=== PATIENT | female | born 1960 | race Asian ===

== ENCOUNTER → 2024-06-11 | Outpatient (CLI) | payer MEDICARE, SELFPAY ==
[2024-06-11 09:11] LABS: Collection Type, Urine Clean Catch
[2024-06-11 09:30] LABS: Bilirubin,Urine Negative (Negative); Blood,Urine Negative (Negative); Clarity,Urine Clear (Clear/Hazy); Color,Urine Yellow (Lt Yel-Yel); Glucose, Urine Negative (Negative); Ketones,Urine Negative (Negative); Leukocyte Esterase,Urine Negative (Negative); Nitrite,Urine Negative (Negative); Protein,Urine Trace (Neg - Trace); RBC,Urine 2 /hpf (0-3); Specific Gravity,Urine 1.027 (1.001-1.035); Squamous Epithelial Cell,Urine < 1 /hpf (0-5); Urobilinogen,Urine Negative mg/dL (0.0-1.0); WBC,Urine 1 /hpf (0-5)
[2024-06-11 09:38] LABS: Glucose Estimated Average 114 mg/dL (80-131); Hemoglobin A1C 5.6 % Hgb (4.8-6.0)
[2024-06-11 10:01] LABS: Alanine Aminotransferase 16 U/L (10-49); Albumin, Serum 4.3 gm/dL (3.4-4.8); Albumin/Globulin Ratio 1.9 (1.2-2.2); Anion Gap 7 (7-16); Aspartate Amino Transferase 22 U/L (0-34); BUN/Creatinine Ratio 25 Ratio (12-20); Bilirubin,Total 0.7 mg/dL (0.3-1.2); Blood Urea Nitrogen 20 mg/dL (9-23); Calcium 9.8 mg/dL (8.3-10.6); Calcium (Corrected) 9.8 mg/dL (8.5-10.1); Carbon Dioxide 29.3 mMol/L (20.0-31.0); Cardiac Risk Estimate 2.4 RATIO (3.7-5.6); Chloride 101 mMol/L (98-107); Cholesterol 172 mg/dL (132-200); Creatinine (Component) 0.8 mg/dL (0.6-1.3); Globulin 2.3 gm/dL (2.3-3.5); Glucose 107 mg/dL (74-106); HDL Cholesterol 72 mg/dL (40-60); LDL Cholesterol,Calculated 81 mg/dL (0-130); Magnesium 1.8 mg/dL (1.6-2.6); Osmolality,Calculated 276 (275-295); Phosphorous 4.1 mg/dL (2.4-5.1); Potassium 4.3 mMol/L (3.4-5.1); Sodium 137 mMol/L (136-145); Total Protein 6.6 gm/dL (5.7-8.2); Triglycerides 95 mg/dL (30-150); eGFR > 60 See Note
[2024-06-11 10:14] LABS: Alkaline Phosphatase 46 U/L (46-116)
[2024-06-11 10:21] LABS: Creatinine MALB Rnd Ur 163 mg/dL (30-125); Microalbumin Creat Ratio 17 mg/gCrea (<30); Microalbumin, Random Urine 28 mg/L (0-300)
== END | disposition home or self-care (01) ==
LOC: COPL 08:16
PROVIDERS: PCP Internal Medicine; Referring Provider Internal Medicine; Visit Provider Internal Medicine
DX: E11.9 Type 2 diabetes mellitus without complications (principal); I10 Essential (primary) hypertension; E78.5 Hyperlipidemia, unspecified
CPT/HCPCS: 36415; 80053; 80061; 81001; 82043; 82570; 83036; 83735; 84100

== ENCOUNTER → 2024-06-20 | Outpatient (CLI) | payer MEDICARE, SELFPAY ==
--- NOTE | 2024-06-20 | XR_ITS ---
Examination: Lumbar spine, 5 views Technique: Lumbar spine AP, lateral, coned lateral lower lumbar spine, bilateral obliques 5 views Exam date and time: June 21, 2023 1147 hours INDICATIONS: Low back pain one year should he now the legs FINDINGS: Moderate osteopenia No lumbar fracture Mild diffuse lumbar disc narrowing Moderate lumbar spondylosis No spondylolisthesis IMPRESSION: Mild lumbar disc narrowing
== END | disposition home or self-care (01) ==
PROVIDERS: PCP Internal Medicine; Referring Provider Internal Medicine; Visit Provider Internal Medicine
DX: M48.061 Spinal stenosis, lumbar region without neurogenic claudication (principal)
CPT/HCPCS: 72110

== ENCOUNTER → 2024-08-20 | Outpatient (CLI) | payer MEDICARE, SELFPAY ==
--- NOTE | 2024-08-20 16:31 | XR_ITS ---
Examination: Thyroid sonography complete TECHNIQUE: Grayscale sonographic images thyroid lobes Exam date and time: August 20, 2024 1640 hours INDICATIONS: Palpable lump in the neck note is beginning 2 days ago. FINDINGS: Right thyroid 5.0 cm Upper pole nodule 19 x 18 mm Multiple smaller nodules including lower pole nodule 8 x 7 mm Left thyroid 4.5 cm Upper pole nodule 10 x 6 mm Midpole nodule 5 x 5 mm Lower pole nodule 13 x 8 mm Smaller nodules IMPRESSION: Bilateral thyroid nodules as above Consider ultrasound-guided fine-needle aspiration of the 19 x 15 x 18 mm nodule in the upper right thyroid lobe
== END | disposition home or self-care (01) ==
LOC: CDIM 16:26
PROVIDERS: Referring Provider Internal Medicine; Visit Provider Internal Medicine
DX: E04.2 Nontoxic multinodular goiter (principal)
CPT/HCPCS: 76536

== ENCOUNTER → 2024-10-01 | Outpatient (CLI) | payer MEDICARE, SELFPAY ==
[2024-09-30 12:36] LABS: Basophils # (Auto) 0.1 Thou/mm3 (0.0-0.2); Basophils % (Auto) 1 % (0-2.5); Eosinophils # (Auto) 0.5 Thou/mm3 (0.0-0.5); Eosinophils % (Auto) 8 % (0-10); Hematocrit 35.6 % (36.0-46.0); Hemoglobin 12.3 g/dL (12.0-16.0); Immature Granulocytes % (Auto) 0 % (0-0); Immature Granulocytes Auto 0.02 Thou/mm3 (0.00-0.00); Lymphocytes # (Auto) 1.6 Thou/mm3 (1.0-4.8); Lymphocytes % (Auto) 27 % (10-50); Mean Corpuscular HGB Conc 34.6 g/dl (31.0-37.0); Mean Corpuscular Hemoglobin 30.5 pg (25.0-35.0); Mean Corpuscular Volume 88 fL (80-100); Monocytes # (Auto) 0.7 Thou/mm3 (0.0-0.8); Monocytes % (Auto) 12 % (0-12); Neutrophils # (Auto) 3.1 Thou/mm3 (1.8-7.7); Neutrophils % (Auto) 52 % (37-80); Nucleated Red Blood Cell % 0 /100 WBC (0); Platelet Count 235 Thou/mm3 (140-440); Red Blood Count 4.03 Miln/mm3 (4.00-5.20)
[2024-09-30 13:11] LABS: INR 0.9 (0.9-1.3); Prothrombin Time 10.2 Seconds (9.0-12.2)
--- NOTE | 2024-10-01 09:30 | XR_ITS ---
Examination: Ultrasound-guided fine needle percutaneous aspiration thyroid nodule, right thyroid nodule. Thyroid sonography, limited Exam date and time: October 01, 2024 1008 hours INDICATIONS: Vascular lower pole right thyroid nodule on thyroid sonogram today. Technique: A timeout was completed verifying correct patient, procedure, site, positioning and special equipment if applicable. The patient was placed in supine position for the thyroid fine needle percutaneous aspiration The patient's right neck was prepped and draped in sterile fashion. Maximum barrier sterile technique, hand hygiene, ultrasound sterile technique. 1% lidocaine was used to anesthetize the skin and subcutaneous tissues to the patient's right thyroid nodule. Multiple fine needle aspirations were performed and multiple thyroid specimens placed in preservative according to the irm protocol. Specimens appears satisfactory. The attending radiologist was present for the entire procedure. Estimated blood loss 3 cc. The patient tolerated the procedure well and there were no complications. Impression: Successful ultrasound-guided fine-needle percutaneous aspiration thyroid nodule, right thyroid nodule.
== END | disposition home or self-care (01) ==
LOC: SDIM 09:01
PROVIDERS: Radiology Diagnostic Radiology; PCP Internal Medicine; Referring Provider Internal Medicine; Visit Provider Internal Medicine
DX: E04.1 Nontoxic single thyroid nodule (principal); Z01.812 Encounter for preprocedural laboratory examination
CPT/HCPCS: 10005; 36415; 85025; 85610; 85730

== ENCOUNTER → 2024-10-17 | Outpatient (CLI) | payer MEDICARE, SELFPAY ==
[2024-10-17 09:12] LABS: Basophils # (Auto) 0.1 Thou/mm3 (0.0-0.2); Basophils % (Auto) 1 % (0-2.5); Eosinophils # (Auto) 0.6 Thou/mm3 (0.0-0.5); Eosinophils % (Auto) 8 % (0-10); Hematocrit 40.4 % (36.0-46.0); Hemoglobin 13.9 g/dL (12.0-16.0); Immature Granulocytes Auto 0.03 Thou/mm3 (0.00-0.00); Lymphocytes # (Auto) 1.3 Thou/mm3 (1.0-4.8); Lymphocytes % (Auto) 18 % (10-50); Mean Corpuscular HGB Conc 34.4 g/dl (31.0-37.0); Mean Corpuscular Hemoglobin 30.6 pg (25.0-35.0); Mean Corpuscular Volume 89 fL (80-100); Monocytes # (Auto) 0.8 Thou/mm3 (0.0-0.8); Monocytes % (Auto) 11 % (0-12); Neutrophils # (Auto) 4.2 Thou/mm3 (1.8-7.7); Neutrophils % (Auto) 61 % (37-80); Nucleated Red Blood Cell # 0.00 Thou/mm3 (0.00-0.00); Nucleated Red Blood Cell % 0 /100 WBC (0); Platelet Count 266 Thou/mm3 (140-440); RDW Standard Deviation 41.9 fL (36.4-46.3); Red Blood Count 4.54 Miln/mm3 (4.00-5.20); White Blood Count 7.0 Thou/mm3 (3.6-11.0)
[2024-10-17 09:16] LABS: Glucose Estimated Average 111 mg/dL (80-131); Hemoglobin A1C 5.5 % Hgb (4.8-6.0)
[2024-10-17 09:18] LABS: Alanine Aminotransferase 14 U/L (10-49); Albumin, Serum 4.5 gm/dL (3.4-4.8); Albumin/Globulin Ratio 1.6 (1.2-2.2); Alkaline Phosphatase 54 U/L (46-116); Anion Gap 6 (7-16); Aspartate Amino Transferase 23 U/L (0-34); BUN/Creatinine Ratio 8 Ratio (12-20); Bilirubin,Total 0.7 mg/dL (0.3-1.2); Blood Urea Nitrogen 8 mg/dL (9-23); Calcium 10.1 mg/dL (8.3-10.6); Calcium (Corrected) 10.1 mg/dL (8.5-10.1); Carbon Dioxide 28.3 mMol/L (20.0-31.0); Cardiac Risk Estimate 2.2 RATIO (3.7-5.6); Chloride 104 mMol/L (98-107); Cholesterol 132 mg/dL (132-200); Creatinine (Component) 1.0 mg/dL (0.6-1.3); Globulin 2.8 gm/dL (2.3-3.5); Glucose 126 mg/dL (74-106); HDL Cholesterol 61 mg/dL (40-60); LDL Cholesterol,Calculated 51 mg/dL (0-130); Osmolality,Calculated 275 (275-295); Potassium 5.1 mMol/L (3.4-5.1); Sodium 138 mMol/L (136-145); Total Protein 7.3 gm/dL (5.7-8.2); Triglycerides 100 mg/dL (30-150); eGFR > 60 See Note
[2024-10-17 10:44] LABS: Collection Type, Urine Clean Catch
[2024-10-17 11:40] LABS: Bilirubin,Urine Negative (Negative); Blood,Urine Negative (Negative); Clarity,Urine Clear (Clear/Hazy); Color,Urine Yellow (Lt Yel-Yel); Glucose, Urine Negative (Negative); Hyaline Casts,Urine < 1 /hpf (0-1); Ketones,Urine Negative (Negative); Leukocyte Esterase,Urine Negative (Negative); Nitrite,Urine Negative (Negative); PH,Urine 6.0 (5.0-7.0); Protein,Urine Trace (Neg - Trace); RBC,Urine 2 /hpf (0-3); Specific Gravity,Urine 1.019 (1.001-1.035); Squamous Epithelial Cell,Urine < 1 /hpf (0-5); Urobilinogen,Urine Negative mg/dL (0.0-1.0); WBC,Urine < 1 /hpf (0-5)
== END | disposition home or self-care (01) ==
LOC: COPL 07:42
PROVIDERS: PCP Internal Medicine; Referring Provider Internal Medicine; Visit Provider Internal Medicine
DX: E11.9 Type 2 diabetes mellitus without complications (principal); I10 Essential (primary) hypertension; E78.5 Hyperlipidemia, unspecified
CPT/HCPCS: 36415; 80053; 80061; 81001; 83036; 85025

== ENCOUNTER → 2024-11-21 | Outpatient (CLI) | payer MEDICARE, SELFPAY ==
[2024-11-27 06:19] LABS: ANA Screen, IFA NEGATIVE (NEGATIVE)
== END | disposition home or self-care (01) ==
PROVIDERS: PCP Internal Medicine; Referring Provider Dermatology; Visit Provider Dermatology
DX: R21 Rash and other nonspecific skin eruption (principal); L81.0 Postinflammatory hyperpigmentation; L81.4 Other melanin hyperpigmentation
CPT/HCPCS: 36415; 86038

== ENCOUNTER → 2025-03-20 | Outpatient (CLI) | payer MEDICARE, SELFPAY ==
[2025-03-20 07:58] LABS: Collection Type, Urine Clean Catch; Squamous Epithelial Cell,Urine 0 /hpf (0-5); WBC,Urine 0 /hpf (0-5)
[2025-03-20 08:35] LABS: Basophils # (Auto) 0.1 Thou/mm3 (0.0-0.2); Basophils % (Auto) 2 % (0-2.5); Eosinophils # (Auto) 0.4 Thou/mm3 (0.0-0.5); Eosinophils % (Auto) 7 % (0-10); Hematocrit 40.5 % (36.0-46.0); Hemoglobin 13.5 g/dL (12.0-16.0); Immature Granulocytes Auto 0.01 Thou/mm3 (0.00-0.00); Lymphocytes # (Auto) 1.6 Thou/mm3 (1.0-4.8); Lymphocytes % (Auto) 27 % (10-50); Mean Corpuscular HGB Conc 33.3 g/dl (31.0-37.0); Mean Corpuscular Hemoglobin 29.9 pg (25.0-35.0); Mean Corpuscular Volume 90 fL (80-100); Monocytes # (Auto) 0.5 Thou/mm3 (0.0-0.8); Monocytes % (Auto) 9 % (0-12); Neutrophils # (Auto) 3.3 Thou/mm3 (1.8-7.7); Neutrophils % (Auto) 55 % (37-80); Nucleated Red Blood Cell # 0.00 Thou/mm3 (0.00-0.00); Nucleated Red Blood Cell % 0 /100 WBC (0); Platelet Count 237 Thou/mm3 (140-440); RDW Standard Deviation 41.8 fL (36.4-46.3); Red Blood Count 4.52 Miln/mm3 (4.00-5.20); White Blood Count 5.9 Thou/mm3 (3.6-11.0)
[2025-03-20 08:40] LABS: Bilirubin,Urine Negative (Negative); Blood,Urine Negative (Negative); Clarity,Urine Clear (Clear/Hazy); Color,Urine Lt-Yellow (Lt Yel-Yel); Glucose, Urine Negative (Negative); Ketones,Urine Negative (Negative); Leukocyte Esterase,Urine Negative (Negative); Nitrite,Urine Negative (Negative); PH,Urine 6.5 (5.0-7.0); Protein,Urine 1+ (Neg - Trace); RBC,Urine 2 /hpf (0-3); Specific Gravity,Urine 1.018 (1.001-1.035); Urobilinogen,Urine Negative mg/dL (0.0-1.0)
[2025-03-20 09:05] LABS: Alanine Aminotransferase 16 U/L (10-49); Albumin, Serum 5.0 gm/dL (3.4-4.8); Albumin/Globulin Ratio 1.8 (1.2-2.2); Alkaline Phosphatase 62 U/L (46-116); Anion Gap 11 (7-16); Aspartate Amino Transferase 25 U/L (0-34); BUN/Creatinine Ratio 11 Ratio (12-20); Bilirubin,Total 0.9 mg/dL (0.3-1.2); Blood Urea Nitrogen 11 mg/dL (9-23); Calcium 10.0 mg/dL (8.3-10.6); Calcium (Corrected) 10.0 mg/dL (8.5-10.1); Carbon Dioxide 28.3 mMol/L (20.0-31.0); Cardiac Risk Estimate 2.2 RATIO (3.7-5.6); Chloride 100 mMol/L (98-107); Cholesterol 157 mg/dL (132-200); Creatinine (Component) 1.0 mg/dL (0.6-1.3); Globulin 2.8 gm/dL (2.3-3.5); Glucose 99 mg/dL (74-106); Glucose Estimated Average 123 mg/dL (80-131); HDL Cholesterol 73 mg/dL (40-60); Hemoglobin A1C 5.9 % Hgb (4.8-6.0); LDL Cholesterol,Calculated 66 mg/dL (0-130); Osmolality,Calculated 276 (275-295); Potassium 4.1 mMol/L (3.4-5.1); Sodium 139 mMol/L (136-145); Thyroid Stimulating Hormone 1.35 uIU/mL (0.55-4.78); Total Protein 7.8 gm/dL (5.7-8.2); Triglycerides 90 mg/dL (30-150); eGFR > 60 See Note
[2025-03-20 09:18] LABS: Creatinine MALB Rnd Ur 105 mg/dL (30-125); Microalbumin Creat Ratio 143 mg/gCrea (<30); Microalbumin, Random Urine 150 mg/L (0-300)
== END | disposition home or self-care (01) ==
LOC: COPL 07:13
PROVIDERS: PCP Internal Medicine; Referring Provider Internal Medicine; Visit Provider Internal Medicine
DX: E11.9 Type 2 diabetes mellitus without complications (principal); I10 Essential (primary) hypertension; E78.5 Hyperlipidemia, unspecified
CPT/HCPCS: 36415; 80053; 80061; 81001; 82043; 82570; 83036; 84443; 85025

== ENCOUNTER 2025-04-07 11:24 | Emergency (ER) | payer MEDICARE, SELFPAY ==
--- NOTE | 2025-04-07 11:44 | EKG_ITS ---
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
[2025-04-07 11:45] VITALS: BP 158/85; PULSE 75; RESP 18; TEMP 36.7; O2SAT 95; BMI 24.0
--- NOTE | 2025-04-07 11:45 | PD.EDRME ---
Rapid Medical Screening Exam RME Arrival date/time: 04/07/25 11:24 64-year-old female with a history of type 2 diabetes, hypertension, presents to the emergency room with a chief complaint of dizziness and lightheadedness x 1 day I have greeted and performed a focused initial assessment of this patient. A comprehensive ED assessment and evaluation of the patient, analysis of all test results, and completion of the medical decision making process will be conducted by additional ED providers. Chief Complaint: Dizziness Vital signs reviewed by provider: Yes Exam: GCS of 15, alert and oriented x 3, pupils are PERRLA EOMs are intact There are no focal neurological deficits Clear bilateral lung sounds Clinical Impression: Anemia/hyperglycemia/
[2025-04-07 12:03] LABS: Basophils # (Auto) 0.1 Thou/mm3 (0.0-0.2); Basophils % (Auto) 1 % (0-2.5); Eosinophils # (Auto) 0.3 Thou/mm3 (0.0-0.5); Eosinophils % (Auto) 5 % (0-10); Hematocrit 39.2 % (36.0-46.0); Hemoglobin 13.2 g/dL (12.0-16.0); Immature Granulocytes Auto 0.02 Thou/mm3 (0.00-0.00); Lymphocytes # (Auto) 1.1 Thou/mm3 (1.0-4.8); Lymphocytes % (Auto) 17 % (10-50); Mean Corpuscular HGB Conc 33.7 g/dl (31.0-37.0); Mean Corpuscular Hemoglobin 30.1 pg (25.0-35.0); Mean Corpuscular Volume 89 fL (80-100); Monocytes # (Auto) 0.4 Thou/mm3 (0.0-0.8); Monocytes % (Auto) 6 % (0-12); Neutrophils # (Auto) 4.7 Thou/mm3 (1.8-7.7); Neutrophils % (Auto) 71 % (37-80); Nucleated Red Blood Cell # 0.00 Thou/mm3 (0.00-0.00); Nucleated Red Blood Cell % 0 /100 WBC (0); Platelet Count 245 Thou/mm3 (140-440); RDW Standard Deviation 41.7 fL (36.4-46.3); Red Blood Count 4.39 Miln/mm3 (4.00-5.20); White Blood Count 6.7 Thou/mm3 (3.6-11.0)
[2025-04-07 12:18] LABS: B-Type Natriuretic Peptide 56 pg/mL (0-100)
[2025-04-07 12:22] LABS: Alanine Aminotransferase 14 U/L (10-49); Albumin, Serum 4.9 gm/dL (3.4-4.8); Albumin/Globulin Ratio 1.8 (1.2-2.2); Alkaline Phosphatase 55 U/L (46-116); Anion Gap 11 (7-16); Aspartate Amino Transferase 25 U/L (0-34); BUN/Creatinine Ratio 8 Ratio (12-20); Bilirubin,Total 0.8 mg/dL (0.3-1.2); Blood Urea Nitrogen 7 mg/dL (9-23); Calcium 9.8 mg/dL (8.3-10.6); Calcium (Corrected) 9.8 mg/dL (8.5-10.1); Carbon Dioxide 26.5 mMol/L (20.0-31.0); Chloride 104 mMol/L (98-107); Creatinine (Component) 0.9 mg/dL (0.6-1.3); Estimated Creatinine Clearance 50.9 mL/min (>60); Free T4 (Free Thyroxine) 1.60 ng/dL (0.89-1.76); Globulin 2.8 gm/dL (2.3-3.5); Glucose 197 mg/dL (74-106); Magnesium 1.4 mg/dL (1.6-2.6); Osmolality,Calculated 284 (275-295); Potassium 4.4 mMol/L (3.4-5.1); Sodium 141 mMol/L (136-145); Thyroid Stimulating Hormone 0.63 uIU/mL (0.55-4.78); Total Protein 7.7 gm/dL (5.7-8.2); Troponin I < 0.002 ng/mL (0.0-0.045); eGFR > 60 See Note
[2025-04-07 12:26] LABS: INR 1.0 (0.9-1.3); Partial Thromboplastin Time 21.6 Seconds (22.0-36.0); Prothrombin Time 10.5 Seconds (9.0-12.2)
--- NOTE | 2025-04-07 15:27 | EDNOTE_ITS ---
ED Dizzyness RME/HPI General Chief Complaint: Dizziness Stated Complaint: DIZZY, NAUSEA/VOMITING Time Seen by Provider: 04/07/25 15:07 Arrival date/time: 04/07/25 11:24 RME / HPI RME / HPI Narrative: 04/07/25 11:24 64-year-old female with a history of type 2 diabetes, hypertension, presents to the emergency room with a chief complaint of dizziness and lightheadedness x 1 day I have greeted and performed a focused initial assessment of this patient. A comprehensive ED assessment and evaluation of the patient, analysis of all test results, and completion of the medical decision making process will be conducted by additional ED providers. DR. YEBOAH MAIN ED EVALUATION 64 year old female with history of hypertension, diabetes presents to the ED for evaluation of dizziness after waking this morning. Described the dizziness as a movement swaying sensation like a really strong earthquake that is aggravated with movements or moving her head. Minimally improved with closing eyes and remaining still. No other known modifying factors. Accompanied by nausea and vomiting. Denies any headache, changes in speech, or unilateral weakness. Denies any loss of sensation or movement of her extremities. Denies fevers, chills, chest pain, cough, ear pain, or urinary symptoms. Patient additionally reports while consulting with her PCP last week her blood pressure in office was elevated 195/100s and started on Nifedipine 30mg QDAY. States last night was her second dose and unsure if that is contributing to her symptoms. Exam: GCS of 15, alert and oriented x 3, pupils are PERRLA EOMs are intact There are no focal neurological deficits Clear bilateral lung sounds Impression: Anemia/hyperglycemia/ Related Data Home Medications ?Medication ?Instructions ?Recorded ?Confirmed fluticasone propionate 50 1 spray intranasal QDAY 02/1507/14/20 mcg/actuation nasal spray,suspension (Flonase Allergy Relief) hydrochlorothiazide 25 mg tablet 37.5 mg PO EVERYOTHER DAY 02/26/19 07/14/20 losartan 50 mg tablet 50 mg PO QDAY 02/26/1907/14 propranolol 20 mg tablet 40 mg PO BID 02/26/19 metformin 850 mg tablet 850 mg PO BID 07/10/2007/14 ofloxacin 0.3 % eye drops 1 drp ophthalmic (eye) QID 0 07/10/20 07/14/20 timolol 0.5 % eye drops 1 drp ophthalmic (eye) QDAY 07/10/20 07/14/20 Previous Rx's ?Medication ?Instructions ?Recorded meclizine 25 mg tablet 25 mg PO TID PRN dizziness # 30 tabs 04/07/25 Allergies Allergy/AdvReac Type Severity Reaction Status Date / Time Iodinated Contrast Media Allergy Intermediate Nausea Verified 04/07/25 11:27 Review of Systems Review of Systems Systems Reviewed: All systems reviewed, normal except as documented Past Medical History Past Medical History NEUROLOGIC: Positive Neurological Disorders and Migraine (takes propanolol) CARDIAC: Positive Cardiac Disorders, Hypercholesterolemia and Hypertension GASTROINTESTINAL: Positive Gastrointestinal Disorders, Hiatal Hernia and Gastroesophageal Reflux Disease GENITOURINARY: Positive Genitourinary Disorders (over active bladder) REPRODUCTIVE: Positive Previous Pregnancies (x2) MUSCULOSKELETAL: Positive Arthritis and Degenerative Joint Disease (left shoulder) ENT: Positive Cataracts ENDOCRINE: Positive Diabetes Mellitus Type 2 OTHER HISTORY: Positive Chicken Pox, Measles and Mumps Family History FAMILY HISTORY: Positive Family Cardiac Disorders (Dad (left CVA), sister (htn), brother (htn)) and Family Surgery Surgical History SURGICAL: Positive Abdominal Surgery (right inguinal hernia repair), Arthroscopy (left knee) and Section Social History SMOKING STATUS: Never smoker ED Exam Narrative Physical exam: Constitutional: Awake, alert, nontoxic, no acute distress HEENT: Normocephalic, atraumatic, extraocular movements intact, slight left beating nystagmus. Neck: Supple CV: Regular rate and rhythm, no murmurs/rubs/gallops Lungs: Clear to auscultation BL, no respiratory distress. Abd: Soft, NT, ND, no HSM noted to palpation Extremities: No deformities, no edema noted Neuro: AAOx3, CN 2-12 GIBL, gait is slow, very minimal unsteady gait, no ataxia, finger to nose is normal, rapid alternating hand movements are normal. Skin: Warm, dry, intact Course Quality Measures none Orders Category Date Time Status EKG (ED ONLY) *Do not use* NOW Care 04/07/25 11:[address] head/brain wo con Stat Exams 04/07/25 16:05 Completed EKG (ED Only) Stat Exams 04/07/25 11:44 Draft B-Type Natriuretic Peptide Stat Lab 04/07/25 11:49 Completed CBC Stat Lab 04/07/25 11:49 Completed Comprehensive Metabolic Panel Stat Lab 04/07/25 11:49 Completed Free T4 (Free Thyroxine) Stat Lab 04/07/25 11:49 Completed Magnesium Stat Lab 04/07/25 11:49 Completed Partial Thromboplastin Time Stat Lab 04/07/25 11:49 Completed Prothrombin Time with INR Stat Lab 04/07/25 11:49 Completed TSH [Thyroid Stimulating Hormone] Stat Lab 04/07/25 11:49 Completed Troponin I Stat Lab 04/07/25 11:49 Completed Urinalysis, C/S if Indicated Stat Lab 04/07/25 11:44 Ordered Meclizine HCl [Antivert] Med 04/07/25 16:05 Discontinued 50 mg PO X1 ONE Vital Signs Vital signs: Vital Signs Temperature 98.0 F 04/07/25 11:45 Pulse Rate 75 04/07/25 11:45 Respiratory Rate 18 04/07/25 11:45 Blood Pressure 158/85 H 04/07/25 11:45 Pulse Oximetry (%) 95 04/07/25 11:45 Oxygen Delivery Method Room Air 04/07/25 11:45 Pulse ox is % on room air which is adequate. Dizziness MDM Narrative MDM Narrative:: 64 year old comes in for dizziness labs and imaging ordered, no significant abnormalities except magnesium is low at 1.4. CT brain and a dose of Meclizine ordered. CT findings with no acute intracranial process. Incidental findings were discussed with patient and she was given copy of report for outpatient follow-up. Symptoms have improved compared with this morning. Believe likely peripheral origin of vertigo. Given meclizine prescription for home as needed. Stable for discharge at this time. Patient data External records reviewed:: [facility] previous records Clinical information provided by:: patient Social determinants that could affect healthcare access:: none Patient has the following chronic illnesses:: hypertension, diabetes How is presenting disease/condition affected by chronic disease/condition?: exacerbated by Evaluation data The following diagnostics were reviewed and interpreted by me:: lab results, radiology exam(s) and EKG tracing(s) (EKG @ 11:54h, interpreted by me, normal sinus rhythm, rate 64, no STEMI. ) Lab and/or radiology exams considered but not ordered:: None Interpretation Summary: Ordering Physician: Swetha Yeboah MD Date of Service: 04/07/25 Procedure(s): CT head/brain wo [facility] Accession Number(s): [id number] cc: Logan Pulido MD; Swetha Yeboah MD; Kacie Clinton MD~ Examination: CT brain head without contrast. 2-D sagittal coronal reconstructions Date and time of exam: 04/07/2025 at 4:18 p.m. CTDI: vol (mGy): 45.5 DLP: (mGycm): 971 CLINICAL HISTORY: New onset dizziness Technique: Multiple CT axial sections of the brain have been obtained, 5 mm slice thickness. Contrast has not been administered. 2-D sagittal, coronal reconstructions have been obtained Low dose protocols were performed. One or more of the following dose reduction techniques were used; automated exposure control, adjustment of the mA and/or KV according to patient size, use of iterative reconstruction technique. Findings: In the bony calvarium near the vertex, there are a large number of small lytic lesions identified on the sagittal images many of these can be seen to have sharply defined sclerotic margins, originating from the inner table. Several additional 1's are seen over the right parietal bone. Although these are fairly prominent number, I do believe they relate to benign etiology, small venous parker or epidermoid cysts might be possible. No other abnormalities are seen in the visible bones anywhere else in the calvarium or in the skull base or facial bones there is a very tiny dependent fluid layer in the left sphenoid sinus, all of the paranasal sinuses and mastoids are clear normal There is moderate dilatation of the extra-axial space over the parietal convexities, consistent with atrophic changes. Ventricular system appears normal for the patient's age. The brainstem and cerebellum appear AL. The lozano and white matter in the cerebrum do not show any abnormalities at all. Many of the intracerebral arteries have high density suggesting diffuse calcification, and definite calcifications are seen involving the internal carotid arteries in the cavernous sinus region. There is significant tortuosity of the basilar artery. Pituitary gland appears normal. IMPRESSION: 1. There are a large number of small localized lytic lesions noted, all localized over the parietal convexities and in the skull, these average about 6 mm in diameter my impression is that these are almost certainly benign, this is partially related to the fact that they are all localized at the vertex of the parietal bones, the remainder of all visible bones in the skull and facial bones are perfectly normal 2. However, I do believe that it would be important to obtain a follow-up CT with attention to the bony calvarium high near the vertex, I would recommend this be performed in about 4 months. If these are stable, then they're certainly related to benign etiology. 3. There are changes of mildly prominent cerebral atrophy over the parietal convexities. No other abnormalities are seen anywhere in the lozano or white matter in the cerebrum cerebellum or brainstem. 4. Extremely tiny dependent fluid level in the left sphenoid sinus 5. There is diffuse very faint calcification felt to be present within most of the intracerebral arteries. This would be consistent with prominent atherosclerotic disease in these regions Impression: Negative for acute hemorrhage, mass effect or midline shift Dictated By: Logan Pulido MD Signed By: <Electronically signed by Logan Pulido MD in [place]> 04/07/25 1650 Medications / Prescriptions Medications or Prescriptions considered but not ordered:: None Medication administrations:: Medication Administration History Discontinued Medications Meclizine HCl (Meclizine Hcl 25 Mg Tablet) 50 mg PO X1 ONE Stop: 04/07/25 16:06 Last Admin: 04/07/25 16:55 Dose: 50 mg Documented By: MF See above Consultations Consultation(s) initiated? (list below): No Diagnosis Dizziness Differential Diagnosis: benign paroxysmal positional vertigo, cerebrovascular accident and transient cerebral ischemia Most likely diagnosis given after review of the tests above:: Benign positional vertigo Admission Indicated Admission indicated?: not indicated Admission Request Was there a request for admission?: No Disposition Plan Disposition Plan: Discharge Discharge Attestation Discharge Attestation: The patient and all family members were given an opportunity to ask questions and understood the discharge instructions. Discharge instructions specifically effects, indications for sooner follow up or return to the emergency department, and the expected course of current diagnosis. Patient condition: Stable Discharge Plan Plan Patient Disposition: HOME (Self Care) Patient condition on transfer: Stable Prescriptions/Referrals Prescriptions/Med Rec: New meclizine 25 mg tablet 25 mg PO TID PRN (Reason: dizziness) Qty: 30 0RF No Action losartan 50 mg Tablet 50 mg PO QDAY hydrochlorothiazide 25 mg Tablet 37.5 mg PO EVERYOTHERDAY propranolol 20 mg Tablet 40 mg PO BID fluticasone propionate [Flonase Allergy Relief] 50 mcg/actuation [place],Suspension 1 spray INTRANASAL QDAY ofloxacin 0.3 % Drops 1 drp OPHTHALMIC (EYE) QID Rx Instructions: left eye metformin 850 mg Tablet 850 mg PO BID timolol 0.5 % Drops 1 drp OPHTHALMIC (EYE) QDAY Referrals: Kacie Clinton MD [Primary Care Provider, Nephrology] - In 1 week Problem List Clinical Impression: Benign paroxysmal positional vertigo Patient/Caregiver Discharge Instructions Education Materials: ED BPV Vertigo, ED Vertigo, Unspecified Additional Instructions: Some general health principles that can help you are the [employer] principles: Nutrition (eat a plant-based diet, avoiding meats in general, avoiding highly processed foods) Exercise (Daily exercise/walks as tolerated) Water (Drink adequate fresh water to maintain hydration, concentrating on water rather than on soda, coffee, tea, juice, etc for hydration) [place] (Spend time - 15-20 minutes or so with skin exposed in the media relations coordinator and late evening sun for Vitamin D health benefits) [place] (Avoid alcohol, illicit drugs, caffeinated beverages, smoking, etc) Air (Deep breathing exercises in the early mornings in fresh air) Rest (Adequate rest at night, going to bed a few hours before midnight and avoiding all screens/television/loud music in the time right before going to bed, also avoiding heavy meals just prior to going to bed) Trust in God (Spend time daily in Bible study and prayer - health benefits in contemplation of God's true character) Additional resources that can benefit: www.[employer], look under resources and seminars. Another good website is [email or web address].org Print Language: Portuguese Stand Alone Forms: Nidia Award Info., Patient Portal Info Letter
--- NOTE | 2025-04-07 16:05 | XR_ITS ---
Examination: CT brain head without contrast. 2-D sagittal coronal reconstructions Date and time of exam: 04/07/2025 at 4:18 p.m. CTDI: vol (mGy): 45.5 DLP: (mGycm): 971 CLINICAL HISTORY: New onset dizziness Technique: Multiple CT axial sections of the brain have been obtained, 5 mm slice thickness. Contrast has not been administered. 2-D sagittal, coronal reconstructions have been obtained Low dose protocols were performed. One or more of the following dose reduction techniques were used; automated exposure control, adjustment of the mA and/or KV according to patient size, use of iterative reconstruction technique. Findings: In the bony calvarium near the vertex, there are a large number of small lytic lesions identified on the sagittal images many of these can be seen to have sharply defined sclerotic margins, originating from the inner table. Several additional 1's are seen over the right parietal bone. Although these are fairly prominent number, I do believe they relate to benign etiology, small venous parker or epidermoid cysts might be possible. No other abnormalities are seen in the visible bones anywhere else in the calvarium or in the skull base or facial bones there is a very tiny dependent fluid layer in the left sphenoid sinus, all of the paranasal sinuses and mastoids are clear normal There is moderate dilatation of the extra-axial space over the parietal convexities, consistent with atrophic changes. Ventricular system appears normal for the patient's age. The brainstem and cerebellum appear AL. The lozano and white matter in the cerebrum do not show any abnormalities at all. Many of the intracerebral arteries have high density suggesting diffuse calcification, and definite calcifications are seen involving the internal carotid arteries in the cavernous sinus region. There is significant tortuosity of the basilar artery. Pituitary gland appears normal. IMPRESSION: 1. There are a large number of small localized lytic lesions noted, all localized over the parietal convexities and in the skull, these average about 6 mm in diameter my impression is that these are almost certainly benign, this is partially related to the fact that they are all localized at the vertex of the parietal bones, the remainder of all visible bones in the skull and facial bones are perfectly normal 2. However, I do believe that it would be important to obtain a follow-up CT with attention to the bony calvarium high near the vertex, I would recommend this be performed in about 4 months. If these are stable, then they're certainly related to benign etiology. 3. There are changes of mildly prominent cerebral atrophy over the parietal convexities. No other abnormalities are seen anywhere in the lozano or white matter in the cerebrum cerebellum or brainstem. 4. Extremely tiny dependent fluid level in the left sphenoid sinus 5. There is diffuse very faint calcification felt to be present within most of the intracerebral arteries. This would be consistent with prominent atherosclerotic disease in these regions Impression: Negative for acute hemorrhage, mass effect or midline shift
[2025-04-07] MEDS: MECLIZINE HCL 25 MG TABLET 50 MG PO (16:55)
== END 2025-04-07 17:49 | disposition home or self-care (01) ==
PROVIDERS: Nurse Practitioner Family; Emergency Provider Family Medicine; PCP Internal Medicine
DX: H81.10 Benign paroxysmal vertigo, unspecified ear (principal); I10 Essential (primary) hypertension; E78.00 Pure hypercholesterolemia, unspecified
CPT/HCPCS: 36415; 70450; 80053; 81001; 83735; 83880; 84439; 84443; 84484; 85025; 85610; 85730; 93005; 99283; A9270